=== PATIENT | male | born 1990 | race Caucasian/White ===

== ENCOUNTER 2017-03-26 09:23 | Emergency (ER) | payer OTHER ==
[~2017-03-26] VITALS: Ht 170.2 cm; Wt 84.8 kg
[2017-03-26 09:28] VITALS: BP 133/85
== END 2017-03-26 11:10 | disposition home or self-care (01) ==
LOC: ED 09:23
DX: J20.9 Acute bronchitis, unspecified (principal)

== ENCOUNTER 2017-07-08 17:39 | Emergency (ER) | payer OTHER ==
[2017-07-08 20:09] VITALS: BP 131/85
== END 2017-07-08 20:09 | disposition home or self-care (01) ==
LOC: ED 17:39
DX: L60.0 Ingrowing nail (principal); R03.0 Elevated blood-pressure reading, without diagnosis of hypertension; J45.909 Unspecified asthma, uncomplicated; Z88.8 Allergy status to other drugs, medicaments and biological substances
CPT/HCPCS: J2001

== ENCOUNTER 2017-08-08 11:51 | Emergency (ER) | payer OTHER ==
[~2017-08-08] VITALS: Ht 167.6 cm; Wt 84.4 kg
[2017-08-08 11:55] VITALS: BP 125/63; Ht 167.6 cm; Wt 84.4 kg
== END 2017-08-08 13:00 | disposition home or self-care (01) ==
LOC: ED 11:51
DX: T23.102A Burn of first degree of left hand, unspecified site, initial encounter (principal); Z88.8 Allergy status to other drugs, medicaments and biological substances; X10.2XXA Contact with fats and cooking oils, initial encounter; Y93.89 Activity, other specified; Y92.89 Other specified places as the place of occurrence of the external cause; Y99.8 Other external cause status

== ENCOUNTER 2017-10-20 14:54 | Emergency (ER) | payer OTHER ==
[~2017-10-20] VITALS: Ht 167.6 cm; Wt 83.9 kg
[2017-10-20 16:22] VITALS: BP 144/80
== END 2017-10-20 16:22 | disposition home or self-care (01) ==
LOC: ED 14:54
DX: M94.0 Chondrocostal junction syndrome [Tietze] (principal); L02.31 Cutaneous abscess of buttock; J45.909 Unspecified asthma, uncomplicated; Z88.8 Allergy status to other drugs, medicaments and biological substances
CPT/HCPCS: J7613; J7644; Q0092